=== PATIENT | female | born 1985 | race Hispanic/Latino ===

== ENCOUNTER 2022-01-01 18:41 | Emergency (ER) | payer MEDICAID, OTHER ==
[~2022-01-01] VITALS: Ht 154.9 cm; Wt 68.0 kg
[~2022-01-01 18:41] MED LIST: LEVO25TA9 PO
[2022-01-01 19:51] LABS: APPEARANCE,URINE CLOUDY (CLEAR); BILIRUBIN,URINE NEGATIVE (NEGATIVE); COLOR,URINE YELLOW (YELLOW); GLUCOSE, URINE (UA) NEGATIVE (NEGATIVE); KETONES,URINE NEGATIVE (NEGATIVE); LEUKOCYTE ESTERASE ,URINE NEGATIVE Leu/uL (NEGATIVE); NITRATE,URINE NEGATIVE (NEGATIVE); OCCULT BLOOD,URINE LARGE (NEGATIVE); PH,URINE 6.5 (5.0-8.0); PROTEIN,URINE 100 mg/dL (NEGATIVE); UROBILINOGEN,URINE 0.2 mg/dL (0.2-1.0)
[2022-01-01 19:56] LABS: BACTERIA,URINE RARE /HPF (None Seen); MUCUS,URINE MOD LPF (None Seen); RBC,URINE >100 /HPF (0-1); SQUAMOUS EPITHELIAL CELL,UR FEW /HPF (0-2)
[2022-01-01 20:00] LABS: HCG,QUALITATIVE URINE NEGATIVE (NEGATIVE)
[2022-01-01] MEDS ORDERED: ACETAMINOPHEN 500 MG TABLET PO ONE (20:00)
[2022-01-01] MEDS ORDERED: CEPH500B PO (20:42)
[2022-01-01] MEDS ORDERED: CEFTRIAXONE 1G VIAL ONE (20:42)
[2022-01-01] MEDS ORDERED: D-ME1POW16 PO (20:52)
[2022-01-01] MEDS ORDERED: CEFTRIAXONE 1G VIAL IM ONE (21:00)
[2022-01-01 21:16] VITALS: BP 132/87
== END 2022-01-01 21:14 | disposition home or self-care (01) ==
LOC: EDH 18:41
DX: N39.0 Urinary tract infection, site not specified (principal); J06.9 Acute upper respiratory infection, unspecified
CPT/HCPCS: 99283; 87088; 87880; 87804 ×2; 81001; 81025; J0696

== ENCOUNTER → 2023-07-31 | Outpatient (CLI) | payer MEDICAID ==
[~2023-07-31] MED LIST changes: +CEPH500B PO; +D-ME1POW16 PO
== END | disposition home or self-care (01) ==
LOC: RAH 08:17
PROVIDERS: ATTEND Internal Medicine
DX: Z12.31 Encounter for screening mammogram for malignant neoplasm of breast (principal); R92.30 Dense breasts, unspecified; N64.89 Other specified disorders of breast
CPT/HCPCS: 77067